=== PATIENT | female | born 2000 | race Caucasian/White ===

== ENCOUNTER 2024-07-21 19:11 | Emergency (ER) | payer OTHER, SELFPAY ==
[2024-07-21 19:19] VITALS: BP 158/99
--- NOTE | 2024-07-21 21:23 | ED.GENMED ---
History of Present Illness
General
Chief Complaint: Depression
Source: patient
Time Seen by Provider: 07/21/24 21:09
History of Present Illness
History of Present Illness:
24-year-old female presents to the emergency room complaining of depression. Patient feels uncomfortable opening up completely but states she feels somewhat dissociated and is concerned about her mental health. She denies any suicidal or homicidal
ideations. She has done nothing to hurt herself. She does not use drugs or alcohol. She was prescribed Strattera and Wellbutrin and was recently started on a another antidepressant she cannot recall the name of. Patient's grandmother told her
she needs to 'go somewhere' to be treated for her depression.
Phy Exam
Physical Exam
Physical Exam:
General: Awake, Alert, Oriented X3. No acute distress.
Vitals: unremarkable
Head: Atraumatic
Eyes: Pupils equal, EOMI
Throat: Airway intact, no exudates
Neck: Trachea midline
Lungs: Clear and equal b/l
Heart: Regular rate, no murmurs
Abd: Soft, Nontender, No pulsatile mass
Neuro: Nonfocal
Skin: Warm, dry, no rash
Extremities: pulses equal b/l, no edema
Course
Orders/Labs/Results
Orders:
Orders
07/21/24 21:11
Crisis Consult Urgent
Reason for Consult: depression
Vital Signs
Initial and Last Documented VS:
Initial Vital Signs
Temp Pulse Resp BP Pulse Ox
98.3 F 124 20 158/99 99
07/21/24 19:19 07/21/24 19:19 07/21/24 19:19 07/21/24 19:19 07/21/24 19:19
Last Documented Vital Signs
Temp Pulse Resp BP Pulse Ox
98.3 F 124 20 158/99 99
07/21/24 19:19 07/21/24 19:19 07/21/24 19:19 07/21/24 19:19 07/21/24 21:45
MDM/Problems Addressed
Differential Diagnosis Includes:
Depression, anxiety, suicidal ideations
MDM/Problems Addressed:
Patient denies specifically any suicidal thoughts or plans. She denies any homicidal ideations. Medically there does not appear to be any acute issue. Crisis consult placed. After their evaluation they determined the patient is not a candidate
for inpatient management of depression. Patient will be discharged home with instruction to follow-up with her [facility] resources
*Pulse Oximetry
Patient hypoxic: no
*Critical Care Note
Total Time (30-74mins, 75-104mins- exclusive of procedures): Not Applicable
ED Attending Note
-
Portions of this chart may have been created with voice recognition software.� Occasional wrong word or��sound alike� substitutions may have occurred due to the inherent limitations of voice recognition software.
Discharge Plan
Departure
Patient Disposition: Home (Routine Discharge)
Date of Disposition: 07/21/24
Time of Disposition: 23:08
Patient with high blood pressure during this ER visit?: Yes
Condition: Good
Discharge Problem:
Depression
Instructions: Depression, Adult (DC), BLOOD PRESSURE
Referrals:
NONE,* [Family Provider] -
Interventions
Interventions:
*Risk Screen - Suicide Last Done: 07/21/24 19:22
*General Assessment Last Done: 07/21/24 19:19
*Neglect/Abuse Screening Last Done: 07/21/24 23:17
*ED- Fall Risk Assessment Last Done: 07/21/24 21:45
*ED COVID-19 Vaccine History Last Done: 07/21/24 21:45
*Nursing Disposition Last Done: 07/21/24 23:17
ED-Psychological Assessment Last Done: 07/21/24 21:45
Discharge Date and Time
Discharge Date/Time: 07/21/24 23:19
Print Language: ARMENIAN
[2024-07-21 21:44] VITALS: BMI 23.7
== END 2024-07-21 23:19 | disposition home or self-care (01) ==
LOC: EMR 19:11
PROVIDERS: EMERGENCY PHYSICIAN Emergency Medicine
DX: F32.A Depression, unspecified (principal)
CPT/HCPCS: 99282

== ENCOUNTER 2024-07-28 15:14 | Emergency (ER) | payer OTHER, SELFPAY ==
[2024-07-28 15:32] VITALS: BP 131/78
--- NOTE | 2024-07-28 16:37 | ED.GENMED ---
History of Present Illness
<Meg Fowler PA-C - Last Filed: 07/29/24 09:50>
General
Chief Complaint: Crisis Evaluation
Source: patient
Exam Limitations: none
Time Seen by Provider: 07/28/24 16:26
History of Present Illness
History of Present Illness:
24yoF she is with a history of anxiety and depression presenting for psychiatric evaluation. Patient has been feeling overwhelmed recently and disconnected. She has been having increased depression and feeling isolated with difficulty sleeping.
She also admits to being more aggressive recently and has been hearing voices. She reports suicidal thoughts but denies any active plan. She has been feeling like this for quite a while and has been speaking with her therapist about this. She
denies any specific stressors. She sees [facility] therapy as well as psychiatry. She is currently receiving Wellbutrin, Strattera, and another antidepressant that she does not recall the name of.
Phy Exam
<Meg Fowler PA-C - Last Filed: 07/29/24 09:50>
General Physical Exam
General Presentation: well appearing and no apparent distress
General age: appears stated age
General Skin: warm and dry
General Habitus: normal
General Mental: alert
ENT Exam
ENT Exam: normocephalic
Pulmonary Exam
Pulmonary Exam: no respiratory distress
Neurological Exam
Neurological Exam: alert
[place] Coma Scale
Eye Opening: Spontaneous
Verbal Response: Oriented
Motor Response: Obeys Commands
GCS Total Score: 15
Skin Exam
Skin Exam: normal color and warm/dry
Psychiatric Exam
Psychiatric Exam: depressed, suicidal and other (+SI without plan. Depressed mood. No signs of psychosis. )
<Angie Cooper PA-C - Last Filed: 07/28/24 21:10>
Physical Exam
Physical Exam:
.
Course
<Meg Fowler PA-C - Last Filed: 07/29/24 09:50>
Orders/Labs/Results
Orders:
Orders
07/28/24 15:26
1:1 Observation - Suicide/ Violent Behavior As Directed
Comment: SI
07/28/24 16:31
Crisis Consult Urgent
Reason for Consult: suicidal thoughts
07/28/24 19:20
HCG, Urine Qualitative Screen Urgent
Date Specimen was Collected: 07/28/24
Time Specimen was Collected: 19:15
Comment: ADD ON
Urine Drug Abuse Screen Urgent
Date Specimen was Collected: 07/28/24
Time Specimen was Collected: 19:15
07/28/24 19:41
Add On- LAB Urgent
Tests Added?: urine HCG
Vital Signs
Initial and Last Documented VS:
Initial Vital Signs
Temp Pulse Resp BP Pulse Ox
98.5 F 95 16 131/78 100
07/28/24 15:32 07/28/24 15:32 07/28/24 15:32 07/28/24 15:32 07/28/24 15:32
Last Documented Vital Signs
Temp Pulse Resp BP Pulse Ox
98.5 F 86 16 118/78 97
07/28/24 15:32 07/28/24 17:21 07/28/24 17:21 07/28/24 17:21 07/28/24 17:21
<Angie Cooper PA-C - Last Filed: 07/28/24 21:10>
Orders/Labs/Results
Orders:
Orders
07/28/24 15:26
1:1 Observation - Suicide/ Violent Behavior As Directed
Comment: SI
07/28/24 16:31
Crisis Consult Urgent
Reason for Consult: suicidal thoughts
07/28/24 19:20
HCG, Urine Qualitative Screen Urgent
Date Specimen was Collected: 07/28/24
Time Specimen was Collected: 19:15
Comment: ADD ON
Urine Drug Abuse Screen Urgent
Date Specimen was Collected: 07/28/24
Time Specimen was Collected: 19:15
07/28/24 19:41
Add On- LAB Urgent
Tests Added?: urine HCG
Vital Signs
Initial and Last Documented VS:
Initial Vital Signs
Temp Pulse Resp BP Pulse Ox
98.5 F 95 16 131/78 100
07/28/24 15:32 07/28/24 15:32 07/28/24 15:32 07/28/24 15:32 07/28/24 15:32
Last Documented Vital Signs
Temp Pulse Resp BP Pulse Ox
98.5 F 86 16 118/78 97
07/28/24 15:32 07/28/24 17:21 07/28/24 17:21 07/28/24 17:21 07/28/24 17:21
<Meg Fowler PA-C - Last Filed: 07/29/24 09:50>
MDM/Problems Addressed
Differential Diagnosis Includes:
24yoF here with psychiatric evaluation. C/o depression, increased aggressiveness, and hearing voices. Also has suicidal thoughts without a plan. Hx of anxiety and depression. No signs of psychosis on exam. VSS. Patient medically cleared for crisis
evaluation.
Patient evaluated by crisis and inpatient treatment recommended for stabilization. Patient ultimately signed 201. Case signed out to Maria Guadalupe Cooper PA-C pending bed placement.
<Angie Cooper PA-C - Last Filed: 07/28/24 21:10>
*Critical Care Note
Total Time (30-74mins, 75-104mins- exclusive of procedures): Not Applicable
<Angie Cooper PA-C - Last Filed: 07/28/24 21:10>
Update Note
Update Note:
Update 8:40 PM: Received patient in signout. Discussed with crisis team. Patient has been accepted at [facility]. She will go under a 201. Transportation pending
Update 9:05 PM: Patient signed 201. Plan to to transport to [place] around 11:30 PM tonight.
ED Attending Note
<Meg Fowler PA-C - Last Filed: 07/29/24 09:50>
-
Portions of this chart may have been created with voice recognition software.� Occasional wrong word or��sound alike� substitutions may have occurred due to the inherent limitations of voice recognition software.
Discharge Plan
Departure
Patient Disposition: Psych Facility
Date of Disposition: 07/28/24
Time of Disposition: 19:48
Patient with high blood pressure during this ER visit?: No
Discharge Problem:
Suicidal ideations
Instructions: Depression, Adult ED
Referrals:
NONE,* [Family Provider] -
Activity Restrictions/Additional Instructions:
Return to the emergency department if you have any thoughts of harming yourself or anyone else, if you are hearing any voices, worsening in current symptoms, or any other concerns
- You should follow-up with your therapist/psychiatrist for further evaluation/management of your medications
Interventions
Interventions:
*Risk Screen - Suicide Last Done: 07/28/24 17:05
*General Assessment Last Done: 07/28/24 17:05
*Neglect/Abuse Screening Last Done: 07/28/24 17:05
*ED- Fall Risk Assessment Last Done: 07/28/24 17:05
*ED COVID-19 Vaccine History Last Done: 07/28/24 17:05
*Nursing Disposition Last Done: 07/28/24 23:45
ED-Psychological Assessment Last Done: 07/28/24 17:05
Discharge Date and Time
Discharge Date/Time: 07/28/24 23:45
Print Language: ARMENIAN
--- NOTE | 2024-07-28 17:02 | EDRN ---
Pt states she has not been feeling like herself for about 2 years. Pt states today she feeling depressed. Pt states family does not want her. Pt feeling violent. Pt thinks her violence more towards her and feels impulsive. Pt has not tried to hurt
herself and has no plan at this time.
[2024-07-28 17:03] VITALS: BMI 25.3
[2024-07-28 17:21] VITALS: BP 118/78
--- NOTE | 2024-07-28 17:24 | EDRN ---
Pt has ordered a meal through security at this time.
[2024-07-28 19:56] LABS: Amphetamines Negative (Negative); Barbiturates Negative (Negative); Benzodiazepines Negative (Negative); Buprenorphine Negative (Negative); Cocaine Negative (Negative); Marijuana Negative (Negative); Methadone Negative (Negative); Methamphetamines Negative (Negative); Opiates Negative (Negative); Phencyclidine Negative (Negative); Tricyclic Antidepressants Negative (Negative)
[2024-07-28 20:08] LABS: HCG, Urine Qualitative Screen Negative
== END 2024-07-28 23:45 ==
LOC: EMR 15:14
PROVIDERS: EMERGENCY PHYSICIAN Student in an Organized Health Care Education/Training Program
DX: R45.851 Suicidal ideations (principal); R44.0 Auditory hallucinations; F41.9 Anxiety disorder, unspecified; F32.A Depression, unspecified; Z79.899 Other long term (current) drug therapy
CPT/HCPCS: 99285; 80306; 81025